=== PATIENT | female | born 1955 | race Caucasian/White ===

== ENCOUNTER → 2017-02-09 | Outpatient (CLI) | payer BC ==
[~2017-02-09] MED LIST: CHOL20007 PO; CYAN5000 PO; ESTR1CRE PV; FISH1CAP3 PO; HYOS1TAB PO; IBAN150T PO; PANT40TA PO; PEDICHW34 PO; POLY1DRO2 OPL
--- NOTE | 2017-02-09 10:03 | DIAGNOSTIC IMAGING REPORT ---
CHEST 2 VIEWS ROUTINE CLINICAL HISTORY: Persistent cough COMPARISON STUDY: September 22, 2013 FINDINGS: The cardiac and mediastinal contours are normal. There is no evidence of focal pulmonary consolidation. There is no evidence of failure. No pleural effusions are visualized.[ There is stable bibasal atelectasis/scarring IMPRESSION: No active disease in the chest. Electronically signed by: Vincent Fletcher M.D. 02/09/2017 10:02 AM Dictated Date/Time: 02/09/2017 10:02 AM
== END | disposition home or self-care (01) ==
LOC: C.RADBC 09:49
PROVIDERS: ATTEND Physician Assistant Medical
DX: R05 Cough (principal)

== ENCOUNTER → 2017-02-13 | Outpatient (CLI) | payer BC ==
[~2017-02-13] MED LIST changes: +GADAVIST IV PRN
--- NOTE | 2017-02-13 07:50 | DIAGNOSTIC IMAGING REPORT ---
BRAIN COMBO HISTORY: 61 years-old Female Z86.69 History of benign neoplasm of cerebral meninges . 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 COMPARISON: Brain MR 09/22/2015 TECHNIQUE: Multiplanar multisequence MRI of the brain was obtained both with and without the use of 7.5 mL Gadavist. FINDINGS: There is no restricted diffusion identified. The midline structures including the corpus callosum, optic chiasm, infundibulum, and pineal gland appear unremarkable. Punctate area of increased FLAIR signal is again seen on sagittal image 11 within the sherry, nonspecific. This may reflect a small area of gliosis. The sella appears partially empty. No cerebellar tonsillar herniation. No significant degenerative changes of the imaged upper cervical spine. There is no acute intracranial hemorrhage, midline shift, abnormal extra-axial collections, hydrocephalus or intracranial mass is identified. There are a few scattered areas of T2/flair prolongation within the periventricular white matter of the cerebral hemispheres bilaterally, unchanged from comparison suggesting minimal chronic microvascular ischemic changes. Flow voids the level of the skull base appear normal. Postsurgical changes from prior left occipital craniectomy noted with likely partial resection of the left lateral cerebellar hemisphere. Minimal micrometallic artifact seen within this distribution. Fluid-filled cavity of the posterior fossa within this region is again seen, 3.9 x 1.6 x 3.0 cm in AP, transverse and craniocaudal dimensions. Again, there is minimal peripheral enhancement at the postoperative bed, notably inferiorly and medially without thick nodular leptomeningeal enhancement or enhancing mass identified. Moderate ethmoid, frontal, maxillary and left sphenoid sinus disease is noted. Bilateral mastoid air cells and middle ear cavities appear clear. IMPRESSION: 1. No acute intracranial abnormality. 2. Stable postsurgical findings of prior left occipital craniectomy with unchanged fluid-filled cavity at the resection bed demonstrating minimal peripheral enhancement. No enhancing mass lesions or evidence of thick nodular leptomeningeal enhancement to suggest disease recurrence or metastatic disease. 3. Incidental note is made of moderate paranasal sinus disease. The above report was generated using voice recognition software. It may contain grammatical, syntax or spelling errors. Electronically signed by: Chirag Akbar M.D. 02/13/2017 7:49 AM Dictated Date/Time: 02/13/2017 7:36 AM
--- NOTE | 2017-02-13 08:15 | DIAGNOSTIC IMAGING REPORT ---
(LIVER) ABDOMEN LIMITED CLINICAL HISTORY: HX BENIGN NEOPLASM CEREBRAL NEOPLAMS,GALLBLADDER pain. Nausea. TECHNIQUE: Ultrasound COMPARISON STUDY: None FINDINGS: Pancreas is uniform. Liver demonstrates fatty infiltration. Gallbladder demonstrates 2 gallstones. Gallbladder wall is 2 mm. Common bile duct is 5 mm. Right kidney is negative for hydronephrosis. IMPRESSION: 1. Several gallstones, the largest of which measures 12 mm. 2. Normal caliber bile ducts. 3. Fatty infiltration of liver The above report was generated using voice recognition software. It may contain grammatical, syntax or spelling errors. Electronically signed by: Nate Mcfarland M.D. 02/13/2017 8:14 AM Dictated Date/Time: 02/13/2017 8:12 AM
== END | disposition home or self-care (01) ==
LOC: C.MRIBC 06:46
PROVIDERS: ATTEND Physician Assistant Medical
DX: K82.4 Cholesterolosis of gallbladder (principal); Z86.69 Personal history of other diseases of the nervous system and sense organs; K76.0 Fatty (change of) liver, not elsewhere classified; R11.0 Nausea

== ENCOUNTER → 2017-06-08 | Outpatient (CLI) | payer BC ==
[~2017-06-08] MED LIST changes: -GADAVIST IV PRN
--- NOTE | 2017-06-08 15:30 | MAMMOGRAPHY REPORT ---
BILATERAL DIGITAL SCREENING MAMMOGRAM TOMOSYNTHESIS WITH CAD: 06/08/2017 CLINICAL HISTORY: Routine screening. TECHNIQUE: Breast tomosynthesis in addition to standard 2D mammography was performed. Current study was also evaluated with a Computer Aided Detection (CAD) system. COMPARISON: Comparison is made to exams dated: 04/14/2016 mammogram, 04/09/2015 mammogram, 02/18/2014 [facility], 12/29/2009 mammogram, 10/24/2007 mammogram, and 09/19/2005 [facility]og [facility]. BREAST COMPOSITION: There are scattered areas of fibroglandular density in both breasts. FINDINGS: No suspicious masses, calcifications, or areas of architectural distortion are noted in ei ther breast. There has been no significant interval change compared to prior exams. IMPRESSION: ACR BI-RADS CATEGORY 1: NEGATIVE There is no mammographic evidence of malignancy. A 1 year screening mammogram is recommended. The pa tient will receive written notification of the results. Approximately 10% of breast cancers are not detected with mammography. A negative mammographic report should not delay biopsy if a clinically suggestive mass is present. Lelo Pacheco M.D. ah/:06/08/2017 08:55:11 [employer]: Regine WREN(Anne Marie)(M), [facility] letter sent: Normal 1/2 BI-RADS Code: ACR BI-RADS Category 1: Negative
== END | disposition home or self-care (01) ==
LOC: C.MAMM 08:23
PROVIDERS: ATTEND Internal Medicine Geriatric Medicine
DX: Z12.31 Encounter for screening mammogram for malignant neoplasm of breast (principal)